=== PATIENT | female | born 1965 | race Caucasian/White ===

== ENCOUNTER 2017-02-16 20:41 | Inpatient (IN) | payer SELFPAY ==
[~2017-02-16] VITALS: Ht 149.9 cm; Wt 43.1 kg
[2017-02-16 20:41] VITALS: BP_SYST 145
[2017-02-16] MEDS ORDERED: NACL 0.9% 1,000 ML IV ONE (22:21)
[2017-02-16] MEDS ORDERED: HYDROmorphone 1 MG INJ. 1 MG/ML AMPUL IVP ONE (22:30)
[2017-02-16] MEDS ORDERED: ONDANSETRON HCL 4 MG/2 ML VIAL IVP ONE (22:30)
[2017-02-16 22:43] LABS: CALCIUM 8.8 mg/dL (8.4-11.0); CREATININE 0.96 mg/dL (0.55-1.30); POTASSIUM 3.3 mmol/L (3.5-5.1)
[2017-02-16 22:45] LABS: BASOPHILS # (AUTO) 0.2 K/uL (0.0-0.2); BASOPHILS % (AUTO) 1.3 % (0.0-2.0); EOSINOPHILS # (AUTO) 0.1 K/uL (0.0-0.4); EOSINOPHILS % (AUTO) 0.3 % (0.0-4.0); HEMATOCRIT 31.8 % (36-48); HEMOGLOBIN 10.8 g/dL (12.0-16.0); LYMPHOCYTES # (AUTO) 1.2 K/uL (1.0-5.5); MEAN CORPUSCULAR HEMOGLOBIN 31 pg (27-31); MEAN CORPUSCULAR HGB CONC 34 % (32-36); MEAN CORPUSCULAR VOLUME 91 fL (79.0-98.0); MONOCYTES # (AUTO) 0.8 K/uL (0.0-1.0); MONOCYTES % (AUTO) 4.6 % (1.7-9.3); NEUTROPHILS # (AUTO) 14.8 K/uL (1.8-7.7); NEUTROPHILS % (AUTO) 86.8 % (40.0-70.0); PLATELET COUNT (AUTO) 340 K/uL (130-430); RED BLOOD CELL COUNT(AUTO) 3.48 MIL/uL (4.2-6.2); RED CELL DISTRIBUTION WIDTH 13.1 % (9.0-15.0); WHITE BLOOD COUNT (AUTO) 17.1 K/uL (4.8-10.8)
[2017-02-16 22:48] LABS: ALBUMIN 3.7 g/dL (3.4-4.8); TOTAL BILIRUBIN 0.4 mg/dL (0.0-1.0)
[2017-02-16 23:21] LABS: PROTHROMBIN TIME 10.8 SECS (9.5-12.5)
[2017-02-17] VITALS (9 sets, daily range): BP systolic 90–107
[2017-02-17] MEDS ORDERED: HYDROmorphone 1 MG INJ. 1 MG/ML AMPUL IVP ONE (00:30)
[2017-02-17 02:36] LABS: BILIRUBIN,URINE NEGATIVE (NEGATIVE); BLOOD, URINE NEGATIVE (NEGATIVE); CLARITY/URINE CLEAR (CLEAR); COLOR,URINE YELLOW (YELLOW); GLUCOSE,URINE NEGATIVE (NEGATIVE); KETONES,URINE 1+ (NEGATIVE); LEUKOCYTE ESTERASE ,URINE NEGATIVE (NEGATIVE); NITRITE, URINE NEGATIVE (NEGATIVE); PROTEIN URINE NEGATIVE (NEGATIVE); UROBILINOGEN,URINE 0.2 (0.2-1.0)
[2017-02-17] MEDS ORDERED: MAGNESIUM SULFATE 50 ML IV PRN (09:00)
[2017-02-17] MEDS ORDERED: POTASSIUM CHLORIDE 10 MEQ TAB.PRT.SR PO PRN (09:00)
[2017-02-17] MEDS ORDERED: ACETAMINOPHEN 325 MG TABLET PO PRN (09:00)
[2017-02-17] MEDS ORDERED: LORazepam 2 MG/ML VIAL IVP PRN (09:00)
[2017-02-17] MEDS ORDERED: ZOLPIDEM TARTRATE 5 MG TABLET PO PRN (09:00)
[2017-02-17] MEDS: HYDROmorphone 2 MG/ML VIAL IVP PRN ×3 (09:42→21:29)
[2017-02-17] MEDS: NACL 0.9% 1,000 ML IV SCH ×2 (10:41→20:02)
[2017-02-17] MEDS: ONDANSETRON HCL 4 MG/2 ML VIAL IVP PRN ×3 (10:43→21:32)
[2017-02-18 03:07] VITALS: BP_SYST 93
[2017-02-18] MEDS: NACL 0.9% 1,000 ML IV SCH ×2 (05:18→14:40)
[2017-02-18 06:49] LABS: BASOPHILS % (AUTO) 0.3 % (0.0-2.0); EOSINOPHILS # (AUTO) 0.1 K/uL (0.0-0.4); EOSINOPHILS % (AUTO) 1.1 % (0.0-4.0); HEMATOCRIT 26.2 % (36-48); LYMPHOCYTES # (AUTO) 1.5 K/uL (1.0-5.5); LYMPHOCYTES % (AUTO) 19.5 % (20.5-51.5); MEAN CORPUSCULAR HEMOGLOBIN 32 pg (27-31); MEAN CORPUSCULAR HGB CONC 34 % (32-36); MEAN CORPUSCULAR VOLUME 92 fL (79.0-98.0); MONOCYTES # (AUTO) 0.9 K/uL (0.0-1.0); MONOCYTES % (AUTO) 11.6 % (1.7-9.3); NEUTROPHILS # (AUTO) 5.2 K/uL (1.8-7.7); NEUTROPHILS % (AUTO) 67.5 % (40.0-70.0); PLATELET COUNT (AUTO) 246 K/uL (130-430); RED BLOOD CELL COUNT(AUTO) 2.84 MIL/uL (4.2-6.2); RED CELL DISTRIBUTION WIDTH 13.8 % (9.0-15.0); WHITE BLOOD COUNT (AUTO) 7.7 K/uL (4.8-10.8)
[2017-02-18 06:51] LABS: CREATININE 0.81 mg/dL (0.55-1.30); POTASSIUM 4.9 mmol/L (3.5-5.1)
[2017-02-18] MEDS: HYDROmorphone 2 MG/ML VIAL IVP PRN ×2 (06:59→21:27)
[2017-02-18 07:00] LABS: ALBUMIN 2.7 g/dL (3.4-4.8); TOTAL BILIRUBIN 0.3 mg/dL (0.0-1.0)
[2017-02-18 07:56] VITALS: BP_SYST 98
[2017-02-18 08:00] VITALS: BP_SYST 98
[2017-02-18] MEDS: ONDANSETRON HCL 4 MG/2 ML VIAL IVP PRN ×2 (08:41→16:30)
[2017-02-18] MEDS: MORPHINE 2 MG/ML INJ. SYRINGE IVP PRN ×2 (11:30→16:30)
[2017-02-18 13:15] VITALS: BP_SYST 104
[2017-02-18] MEDS ORDERED: FAMOTIDINE 20 MG TABLET PO ONE (14:00)
[2017-02-18] MEDS: DOCUSATE SODIUM 100 MG CAPSULE PO PRN (14:38)
[2017-02-18 16:15] VITALS: BP_SYST 97
[2017-02-18 20:59] VITALS: BP_SYST 120
[2017-02-19] VITALS (8 sets, daily range): BP systolic 95–116
[2017-02-19] MEDS: NACL 0.9% 1,000 ML IV SCH ×2 (02:04→15:53)
[2017-02-19] MEDS: HYDROmorphone 2 MG/ML VIAL IVP PRN (04:41)
[2017-02-19 07:03] LABS: CREATININE 0.76 mg/dL (0.55-1.30); POTASSIUM 4.1 mmol/L (3.5-5.1)
[2017-02-19 07:06] LABS: BASOPHILS % (AUTO) 0.5 % (0.0-2.0); EOSINOPHILS # (AUTO) 0.2 K/uL (0.0-0.4); EOSINOPHILS % (AUTO) 2.2 % (0.0-4.0); HEMATOCRIT 26.8 % (36-48); HEMOGLOBIN 9.2 g/dL (12.0-16.0); LYMPHOCYTES # (AUTO) 1.6 K/uL (1.0-5.5); LYMPHOCYTES % (AUTO) 17.4 % (20.5-51.5); MEAN CORPUSCULAR HEMOGLOBIN 32 pg (27-31); MEAN CORPUSCULAR HGB CONC 34 % (32-36); MEAN CORPUSCULAR VOLUME 92 fL (79.0-98.0); MONOCYTES # (AUTO) 0.9 K/uL (0.0-1.0); MONOCYTES % (AUTO) 9.7 % (1.7-9.3); NEUTROPHILS # (AUTO) 6.7 K/uL (1.8-7.7); NEUTROPHILS % (AUTO) 70.2 % (40.0-70.0); PLATELET COUNT (AUTO) 250 K/uL (130-430); RED BLOOD CELL COUNT(AUTO) 2.91 MIL/uL (4.2-6.2); RED CELL DISTRIBUTION WIDTH 13.5 % (9.0-15.0); WHITE BLOOD COUNT (AUTO) 9.4 K/uL (4.8-10.8)
[2017-02-19] MEDS: ONDANSETRON HCL 4 MG/2 ML VIAL IVP PRN (08:14)
[2017-02-19] MEDS: FAMOTIDINE 20 MG TABLET PO SCH (08:14)
[2017-02-19] MEDS: MORPHINE 2 MG/ML INJ. SYRINGE IVP PRN ×2 (10:25→15:23)
[2017-02-19] MEDS: HYDROcodone/ACETAMIN 10-325 MG TAB PO PRN ×2 (10:25→21:28)
[2017-02-19] MEDS: DOCUSATE SODIUM 100 MG CAPSULE PO PRN (15:25)
[2017-02-19] MEDS ORDERED: MAGNESIUM CITRATE 300 ML ORAL SOLUTION PO ONE (18:00)
[2017-02-19] MEDS: LACTULOSE 20 GM/30 ML UDC PO SCH (21:26)
[2017-02-20] VITALS (7 sets, daily range): BP systolic 112–127
[2017-02-20] MEDS: HYDROcodone/ACETAMIN 10-325 MG TAB PO PRN ×2 (06:56→19:34)
[2017-02-20 06:59] LABS: CALCIUM 7.8 mg/dL (8.4-11.0); CREATININE 0.78 mg/dL (0.55-1.30)
[2017-02-20] MEDS: LACTULOSE 20 GM/30 ML UDC PO SCH ×2 (10:44→21:53)
[2017-02-20] MEDS: FAMOTIDINE 20 MG TABLET PO SCH (10:44)
[2017-02-20] MEDS: NACL 0.9% 1,000 ML IV SCH (10:56)
[2017-02-20] MEDS: MORPHINE 2 MG/ML INJ. SYRINGE IVP PRN (14:51)
[2017-02-21] MEDS: HYDROcodone/ACETAMIN 10-325 MG TAB PO PRN ×2 (03:28→15:11)
[2017-02-21 03:36] VITALS: BP_SYST 118
[2017-02-21 07:01] LABS: BASOPHILS % (AUTO) 0.2 % (0.0-2.0); EOSINOPHILS # (AUTO) 0.1 K/uL (0.0-0.4); EOSINOPHILS % (AUTO) 0.7 % (0.0-4.0); HEMATOCRIT 27.4 % (36-48); HEMOGLOBIN 9.5 g/dL (12.0-16.0); LYMPHOCYTES # (AUTO) 0.7 K/uL (1.0-5.5); LYMPHOCYTES % (AUTO) 5.4 % (20.5-51.5); MEAN CORPUSCULAR HEMOGLOBIN 32 pg (27-31); MEAN CORPUSCULAR HGB CONC 35 % (32-36); MEAN CORPUSCULAR VOLUME 91 fL (79.0-98.0); MONOCYTES # (AUTO) 0.7 K/uL (0.0-1.0); MONOCYTES % (AUTO) 5.7 % (1.7-9.3); NEUTROPHILS # (AUTO) 10.7 K/uL (1.8-7.7); PLATELET COUNT (AUTO) 313 K/uL (130-430); RED CELL DISTRIBUTION WIDTH 13.4 % (9.0-15.0); WHITE BLOOD COUNT (AUTO) 12.2 K/uL (4.8-10.8)
[2017-02-21 07:19] LABS: CALCIUM 8.1 mg/dL (8.4-11.0); CREATININE 0.68 mg/dL (0.55-1.30); POTASSIUM 3.9 mmol/L (3.5-5.1)
[2017-02-21 08:00] VITALS: BP_SYST 112
[2017-02-21] MEDS: FAMOTIDINE 20 MG TABLET PO SCH (08:45)
[2017-02-21] MEDS: MORPHINE 2 MG/ML INJ. SYRINGE IVP PRN (08:46)
[2017-02-21] MEDS ORDERED: METR500T PO (08:47)
[2017-02-21] MEDS: LACTULOSE 20 GM/30 ML UDC PO SCH (09:00)
[2017-02-21] MEDS ORDERED: HYDR-1189 PO (09:18)
[2017-02-21 12:22] VITALS: BP_SYST 112
[2017-02-21 13:45] VITALS: BP_SYST 112
[2017-02-21 16:48] VITALS: BP_SYST 117
== END 2017-02-21 17:41 | disposition home or self-care (01) | DRG 536 ==
LOC: SED 20:41 → SMU 22:45
PROVIDERS: ADMIT General Practice; ATTEND General Practice
DX: S32.501A Unspecified fracture of right pubis, initial encounter for closed fracture (principal); E87.6 Hypokalemia; K21.9 Gastro-esophageal reflux disease without esophagitis; M25.551 Pain in right hip; R26.9 Unspecified abnormalities of gait and mobility; S32.591A Other specified fracture of right pubis, initial encounter for closed fracture; D72.829 Elevated white blood cell count, unspecified; V28.4XXA Motorcycle driver injured in noncollision transport accident in traffic accident, initial encounter; Y93.89 Activity, other specified; Y92.89 Other specified places as the place of occurrence of the external cause; Y99.8 Other external cause status
CPT/HCPCS: 36415; 72170-TC; 73521; 80048; 80053; 81003; 83735-TC; 85025; 85610-TC; 85730-TC; 96361; 96374; 96375; 96376; 97110-GP; 97116-GP; 97530-GP; 99285; J0696; J1170; J2270; J2405; J3475; J7030; J7060